=== PATIENT | male | born 1970 | race Caucasian/White ===

== ENCOUNTER 2019-11-30 10:54 | Outpatient (CLI) | payer OTHER, SELFPAY ==
[2019-11-30 11:52] LABS: Potassium 5.2 mmol/L (3.5-5.1)
== END 2019-11-30 10:55 | disposition home or self-care (01) ==
DX: R07.89 Other chest pain (principal); E87.5 Hyperkalemia
CPT/HCPCS: 36415; 80053; 84132

== ENCOUNTER 2019-12-08 10:06 | Outpatient (CLI) | payer OTHER, SELFPAY ==
[2019-12-08 11:09] LABS: Potassium 4.8 mmol/L (3.5-5.1)
== END 2019-12-08 10:07 | disposition home or self-care (01) ==
LOC: CHSLAB 10:07
PROVIDERS: PCP Family Medicine; Visit Provider Family Medicine
DX: E87.5 Hyperkalemia (principal)
CPT/HCPCS: 36415; 84132

== ENCOUNTER 2020-12-13 15:25 | Outpatient (CLI) | payer OTHER, SELFPAY ==
[2020-12-13 17:09] LABS: SARS-CoV-2 RNA PCR Negative (Negative)
== END 2020-12-13 15:26 | disposition home or self-care (01) ==
PROVIDERS: PCP Emergency Medicine; Visit Provider Family Medicine
DX: J06.9 Acute upper respiratory infection, unspecified (principal); Z20.822 Contact with and (suspected) exposure to COVID-19
CPT/HCPCS: C9803; U0003; U0005

== ENCOUNTER 2021-08-17 02:31 | Emergency (ER) | payer OTHER, SELFPAY ==
--- NOTE | ~2021-08-17 | XR_ITS ---
EXAMINATION: XR chest 1V portable DATE: 08/17/2021 02:50 INDICATION: Shortness of breath. TECHNIQUE: A single frontal view of the chest was obtained. COMPARISON: Chest 2 views 08/09/2019 FINDINGS: The lungs are hyperexpanded, consistent with emphysema. No pleural effusion or pneumothorax . The heart size is normal. IMPRESSION: 1. Emphysema. Reviewed, dictated and finalized at location A. ENGINEER IMPRESSION: 1. Emphysema.
[2021-08-17 02:31] VITALS: PULSE 90; RESP 24; O2SAT 93
[2021-08-17] MEDS: IPRATROPIUM 0.5 MG/ALBUTEROL SULFATE 2.5 MG AMPUL.NEB 3 ML INHALATION (02:31)
--- NOTE | 2021-08-17 02:35 | ED.SOB ---
HPI - SOB/Dyspnea General Chief Complaint: Upper Respiratory Infection Stated Complaint: SHORTNESS OF BREATH Time Seen by Provider: 08/17/21 02:35 Source: patient History of Present Illness HPI Narrative: 51-year-old male ex-smoker history of COPD presents to the ER with a 3 day history of -- intermittent fevers -- cough productive of mucopurulent sputum -- worsening shortness breath. 45 minutes ago his bridging became worse which prompted to come to the ER -- pleuritic chest pain MD elicited complaint: shortness of breath, cough and pain with inspiration Pertinent past history: COPD Onset (ago): day(s) ( 3 days) Context: recent illness Relieving factors: nothing Known history of: COPD Associated symptoms: pain with inspiration, fever, cough, wheezing and sputum production Treatment prior to arrival: none Related Data Home Medications Medication Instructions Recorded Confirmed albuterol sulfate [Ventolin HFA] 2 puff INHALATION PRN 08/09/19 08/17/21 budesonide-formoterol HFA 80 2 puff INHALATION Q12H 08/15/19 08/17/21 mcg-4.5 mcg/actuation aerosol inhaler Allergies Allergy/AdvReac Type Severity Reaction Status Date / Time No Known Allergies Allergy Verified 08/17/19 15:34 Review of Systems Review of Systems: All systems reviewed & are unremarkable except as noted in HPI and below Constitutional: Constitutional: Reports as per HPI and Reports no additional constitutional complaints Eyes: Eyes: Reports as per HPI and Reports no additional eye complaints ENT: Reports system reviewed and no additional complaints, except as documented and Reports as per HPI Cardiovascular: Cardiovascular: Reports as per HPI, Reports no additional cardiovascular complaints and Reports dyspnea Respiratory: Respiratory: Reports as per HPI, Reports no additional respiratory complaints, Reports cough, Reports pain on inspiration, Reports pain with cough and Reports dyspnea Gastrointestinal: Gastrointestinal: Reports as per HPI and Reports no additional gastrointestinal complaints Genitourinary: Genitourinary: Reports no additional male genitourinary complaints and Reports as per HPI Musculoskeletal: Musculoskeletal: Reports no additional musculoskeletal complaints and Reports as per HPI Integumentary/Breasts: Skin/Breast: Reports system reviewed and no additional complaints, except as docu and Reports as per HPI Neurologic: Reports system reviewed and no additional complaints, except as documented and Reports as per HPI Psychiatric: Psychiatric: Reports no additional psychiatric complaints Endocrine: Endocrine: Reports no additional endocrine complaints Hematologic/Lymphatic: Hematologic/Lymphatic: Reports no additional hematologic/lymphatic complaints Allergic/Immunologic: Allergic/Immunologic: Reports no additional allergic/immunologic complaints [facility] Past Medical History Medical History COPD (chronic obstructive pulmonary disease) Surgical History Surgical History H/O hernia repair H/O shoulder surgery History of ankle surgery History of tonsillectomy Social History Social History Smoking packs per day: 1 Smoking cigarettes per day: 20.0 Years smoked: 30 Smoking pack-years: 30.00 Smoking status: Current every day smoker Tobacco type: e-cigarettes/vaping Second hand tobacco smoke exposure: Yes ( smokes) Smoking end date: 10/28/18 Additional smoking assessment comments: Currently vapes Alcohol intake: former Substance use: never Substance use type: does not use Gender identity (if verbalized by the patient): Male Exam Const: General: cooperative, acute distress and anxious HENMT: Head: normal to inspection and No palpable skull fracture present Ears: hearing grossly normal bilaterally and external ears normal Ge
--- NOTE | 2021-08-17 02:44 | ECG_ITS ---
Measurements Intervals [place] Rate: 81 P: 72 [place]: 141 QRS: 77 QRSD: 98 T: 64 QT: 395 QTc: 459 Interpretive Statements SINUS RHYTHM POSSIBLE LEFT ATRIAL ENLARGEMENT DELAYED PRECORDIAL R/S TRANSITION BASELINE ARTIFACT- I, III, AVR, AVL, V1, V4 BORDERLINE ECG Electronically Signed On 08-17-2021 8:13:59 RESEARCH RN SPEC by Ramesh Medeiros D.O.
[2021-08-17 02:48] VITALS: PULSE 88; RESP 19; O2SAT 92
[2021-08-17] MEDS: methylPREDNISolone SOD SUCC 125 MG VIAL IM (02:54)
[2021-08-17 03:11] LABS: Basophils Absolute Auto 0.01 K/mm3 (0.00-0.10); Basophils Percent Auto 0.1 % (0.0-1.0); Hemoglobin 13.2 g/dL (14.0-18.0); Immature Granulocyte Absolute 0.08 K/mm3 (0.00-0.00); Immature Granulocyte Percent A 0.5 % (0.0-0.0); Lymphocytes Absolute Auto 0.82 K/mm3 (1.10-4.50); Lymphocytes Percent Auto 5.6 % (18.0-42.0); Mean Corpuscular Hemoglobin 31.1 pg (27.0-31.0); Mean Corpuscular Volume 94.3 fL (78.0-102.0); Mean Platelet Volume 9.3 fl (8.7-11.0); Monocytes Absolute Auto 0.57 K/mm3 (0.10-0.90); Monocytes Percent Auto 3.9 % (2.0-11.0); Neutrophils Absolute Auto 13.2 K/mm3 (1.7-7.2); Neutrophils Percent Auto 89.9 % (50.0-70.0); Platelet Count Result 351 K/mm3 (150-420); Red Blood Count 4.24 M/mm3 (4.70-6.10); White Blood Count 14.7 K/mm3 (4.8-10.8)
[2021-08-17 03:24] LABS: Lactic Acid Reflex 3.5 mmol/L (0.4-2.0)
[2021-08-17 03:25] LABS: Alanine Aminotransferase 29 U/L (16-63); Albumin Level 3.9 g/dL (3.4-5.0); Alkaline Phosphatase 74 U/L (46-116); Anion Gap 14 mmol/L (8-16); Aspartate Amino Transferase 26 U/L (15-37); Bilirubin,Total 0.8 mg/dL (0.00-1.00); Blood Urea Nitrogen 18 mg/dL (7-18); Carbon Dioxide 24 mmol/L (21-32); Chloride 98 mmol/L (98-108); Estimated Glomerular Filt Rate > 60; Glucose 167 mg/dL (70-99); NT Pro B Type Natriuretic Pept 266 pg/mL (0-125); Osmolality Calculated 287 mOsm/kg (285-295); Sodium 136 mmol/L (136-145); Total Protein 7.5 g/dL (6.4-8.2)
[2021-08-17 03:28] LABS: Influenza Control Valid (Valid)
[2021-08-17 03:29] LABS: Troponin I 5.3 ng/L (0.00-60.4)
[2021-08-17 03:31] VITALS: BP 140/82; PULSE 103; RESP 24; TEMP 36.4; O2SAT 97
[2021-08-17 03:32] LABS: SARS-CoV-2 Ag Negative (Negative)
[2021-08-17 03:45] VITALS: PULSE 88; RESP 19; O2SAT 89
[2021-08-17] MEDS: AZITHROMYCIN 250 MG TABLET 500 MG PO (03:45)
[2021-08-17] MEDS: cefTRIAXone 1 GM in DEXTROSE 5% IN WATER 50 ML IVPB (03:46)
[2021-08-17] MEDS: SODIUM CHLORIDE 0.9% 3 ML NEB FOR INHALATION (03:57)
[2021-08-17] MEDS: ALBUTEROL SULFATE NEB 2.5 MG/3 ML INH (03:57)
--- NOTE | 2021-08-17 04:11 | PC.NURSE ---
triage & assessment at 0231, error in documentation time
[2021-08-17 04:13] VITALS: PULSE 82; RESP 18; O2SAT 93
[2021-08-17 04:26] VITALS: BP 106/70; PULSE 82; RESP 22; TEMP 36.6; O2SAT 85
--- NOTE | 2021-08-17 04:41 | PC.NURSE ---
explaining benefit to hospital admission
--- NOTE | 2021-08-17 04:46 | PC.NURSE ---
SPO2 85 ON ROOM AIR, PATIENT CONT TO REFUSE ADMISSION
--- NOTE | 2021-08-17 04:54 | PC.NURSE ---
IV REMOVED WITH DRESSING BEFORE LEAVING AMA
[2021-08-17 06:03] LABS: Reflex Lactic Acid Yes or No Add Lactic
== END 2021-08-17 04:55 | disposition left against medical advice (07) ==
PROVIDERS: Emergency Provider Internal Medicine Critical Care Medicine
DX: J44.1 Chronic obstructive pulmonary disease with (acute) exacerbation (principal); J18.9 Pneumonia, unspecified organism; J96.01 Acute respiratory failure with hypoxia; Z20.822 Contact with and (suspected) exposure to COVID-19
CPT/HCPCS: 36415; 71045; 80053; 83605; 83880; 84484; 85025; 87426; 87804; 93005; 96365; 96372; 99283; 99284; A9270; C9803; J0696; J2930

== ENCOUNTER 2021-09-23 12:21 | Outpatient (CLI) | payer OTHER, SELFPAY ==
--- NOTE | ~2021-09-23 | XR_ITS ---
XR tibia fibula RT 2V DATE: 09/23/2021 12:48 INDICATION: Right leg pain distal to knee. TECHNIQUE: AP and lateral views COMPARISON: None FINDINGS: There is a plate and multiple screws of the distal fibular shaft and lateral malleolus. There are 2 lag screws through the medial malleolus, extending into the distal tibial metaphysis. No recent fracture or dislocation of the tibia or fibula including ankle, or disruption of the ankle mortise is detected. IMPRESSION: Status post ORIF medial and lateral malleoli No recent fracture or dislocation Reviewed, dictated and finalized at location A. WORKER
--- NOTE | ~2021-09-23 | XR_ITS ---
XR knee RT 3V 09/23/2021 12:48 INDICATION: Right knee pain PROCEDURE: 3 views right knee COMPARISON: No prior studies for comparison. FINDINGS: Fracture, dislocation or subluxation is not identified. There is heterotopic ossification a djacent to the distal femur medially. No foreign bodies are identified. IMPRESSION: 1: NO ACUTE BONE OR JOINT ABNORMALITY IDENTIFIED. Reviewed, dictated and finalized at location B. ORATE ACCOUNT EXECUTIVE
== END 2021-09-23 12:22 | disposition home or self-care (01) ==
LOC: CHSIMG 12:23
PROVIDERS: PCP Family Medicine; Visit Provider Family Medicine
DX: M79.604 Pain in right leg (principal)
CPT/HCPCS: 73562; 73590

== ENCOUNTER 2023-04-04 14:08 | Emergency (ER) | payer OTHER, SELFPAY ==
--- NOTE | ~2023-04-04 | XR_ITS ---
PA, oblique, and lateral views of the left index finger Clinical history: Injury FINDINGS: No fracture or dislocation seen. Osseous alignment is anatomic. Joint spaces are preserved. Soft tissues are unremarkable. IMPRESSION: Unremarkable exam. Reviewed, dictated and finalized at location M. IMPRESSION: Unremarkable exam.
[2023-04-04 14:08] VITALS: BP 134/89; PULSE 66; RESP 17; TEMP 36.6; O2SAT 99
--- NOTE | 2023-04-04 14:12 | ED.WOUNDLAC ---
HPI - Wound/Laceration General Chief Complaint: Wound/Laceration Stated Complaint: finger laceration Time Seen by Provider: 04/04/23 14:12 Source: patient Mode of arrival: ambulatory Limitations: no limitations History of Present Illness HPI narrative: patient is a 53-year-old male with a left pointer finger flexor surface laceration after getting it closed in a door jam. Onset (ago): hour(s) (8) Location: other ( Pointer finger left) Place: home Patient tetanus UTD: Yes Context: accidental Associated symptoms: none Related Data Home Medications Medication Instructions Recorded Confirmed ipratropium bromide 17 1 puff inhalation DAILY 04/04/23 04/04/23 mcg/actuation HFA aerosol inhaler (Atrovent HFA) sildenafil 100 mg tablet 100 mg PO DAILY PRN Erectile 04/04/23 04/04/23 Dysfunction zafirlukast 20 mg tablet 20 mg PO BID 04/04/23 04/04/23 Allergies Allergy/AdvReac Type Severity Reaction Status Date / Time No Known Allergies Allergy Verified 04/04/23 14:13 Review of Systems Review of Systems: All systems reviewed & are unremarkable except as noted in HPI and below Constitutional: Constitutional: Reports no additional constitutional complaints Eyes: Eyes: Reports no additional eye complaints ENT: Reports system reviewed and no additional complaints, except as documented Cardiovascular: Cardiovascular: Reports no additional cardiovascular complaints Respiratory: Respiratory: Reports no additional respiratory complaints Gastrointestinal: Gastrointestinal: Reports no additional gastrointestinal complaints Genitourinary: Genitourinary: Reports no additional male genitourinary complaints Musculoskeletal: Musculoskeletal: Reports no additional musculoskeletal complaints Integumentary/Breasts: Skin/Breast: Reports system reviewed and no additional complaints, except as docu Neurologic: Reports system reviewed and no additional complaints, except as documented Psychiatric: Psychiatric: Reports no additional psychiatric complaints Endocrine: Endocrine: Reports no additional endocrine complaints Hematologic/Lymphatic: Hematologic/Lymphatic: Reports no additional hematologic/lymphatic complaints Allergic/Immunologic: Allergic/Immunologic: Reports no additional allergic/immunologic complaints [facility] Past Medical History Medical History COPD (chronic obstructive pulmonary disease) Surgical History Surgical History H/O hernia repair H/O shoulder surgery History of ankle surgery History of tonsillectomy Social History Social History Smoking packs per day: 1 Smoking cigarettes per day: 20.0 Years smoked: 30 Smoking pack-years: 30.00 Smoking status: Former smoker Tobacco type: e-cigarettes/vaping Second hand tobacco smoke exposure: Yes ( smokes) Smoking end date: 10/28/18 Additional smoking assessment comments: Currently vapes Alcohol intake: former Substance use: never Substance use type: does not use Living arrangements: with family Gender identity (if verbalized by the patient): Male Exam Const: General: healthy appearing Nutritional Appearance: well nourished Orientation/consciousness: patient oriented x3 HENMT: Head: normal to inspection Ears: external ears normal Eyes: Conjunctivae: conjunctivae normal Pupils: Equal, round and reactive pupils present Neck: Neck: normal visual inspection Chest: Chest palpation & inspection: normal inspection of the chest Resp: Effort & Inspection: normal respiratory effort Auscultation: clear to auscultation bilaterally Cardio: Rate: regular rate Rhythm: regular rhythm GI: GI Palp: Yes Soft to palpation and No Tenderness to palpation present (GI) Skin: General skin exam: normal color Rashes: no rashes Other: Left pointer finger flexor
[2023-04-04 15:54] VITALS: BP 130/80; PULSE 68; RESP 17; TEMP 36.7; O2SAT 99
== END 2023-04-04 15:56 | disposition home or self-care (01) ==
PROVIDERS: Emergency Provider Emergency Medicine; PCP Family Medicine
DX: S61.211A Laceration without foreign body of left index finger without damage to nail, initial encounter (principal); J44.9 Chronic obstructive pulmonary disease, unspecified; Z87.891 Personal history of nicotine dependence; W45.8XXA Other foreign body or object entering through skin, initial encounter; Y92.009 Unspecified place in unspecified non-institutional (private) residence as the place of occurrence of the external cause
CPT/HCPCS: 29130; 73140; 99283

== ENCOUNTER 2024-10-14 05:12 | Emergency (ER) | payer OTHER, SELFPAY ==
[2024-10-14] VITALS (8 sets, daily range): BP systolic 127–144; BP diastolic 75–89; PULSE 62–66; RESP 17–24; TEMP 37.3–38.1; O2SAT 90–96
--- NOTE | ~2024-10-14 | XR_ITS ---
EXAMINATION: XR chest 2V DATE: 10/14/2024 05:54 INDICATION: 2 days of cough TECHNIQUE: PA and lateral views of the chest were obtained. COMPARISON: Chest radiograph dated 08/17/2021 FINDINGS: Hyperexpansion of lungs consistent with emphysema. Blunting at the left costophrenic represent a very small left pleural effusion or pleural parenchymal scarring. No other airspace opacities,, pulmonary edema or pneumothorax. The cardiomediastinal silhouette is normal. Visualized bones and soft tissues are unremarkable. IMPRESSION: 1. Emphysema with possible tiny left pleural effusion. Reviewed, dictated and finalized at location A. LATHE MACHINIST
--- OUTSIDE RECORDS SUMMARY | 2024-10-14 05:13 | XMS_ITS | Clinical Summary ---
Author Organization [facility] Address [address] [place] [address] Care Team Providers Care Blasting Coal Miner Name Role Phone Deny Cain MD Primary Care Provider [phone] Allergies No known active allergies Medications VENTOLIN HFA 108 (90 Base) MCG/ACT inhaler 1 Active SYMBICORT 160-4.5 MCG/ACT inhaler 1 Active ATROVENT HFA 17 MCG/ACT inhaler 1 Active predniSONE 10 mg tablet 10 mg. As needed 1 Active CPAP DEVICE, DME,Indications: Obstructive sleep apnea (adult) (pediatric) CPAP pressure 4. Obstructive sleep apnea. G 47.33. Please provide patient with mask, harness, tubing, humidity and all supplies for CPAP machine. 1 Device 1 Active zafirlukast 20 MG TabIndications:M ild intermittent asthma without complication (HHS/HCC) Take 1 tablet (20 mg total) by mouth 2 (two) times daily. on an empty stomach. 60 tablet 11 2 Active Active Problems Problem Noted Date Diagnosed Date Obstructive sleep apnea (adult) (pediatric) 12/30 Moderate persistent asthma without complication (HHS/HCC) 10/26/2020 Resolved Problems Problem Noted Date Diagnosed Date Resolved Date Snoring 10/26/2020 01/26/2021 Immunizations Name Administration Dates Next Due Influenza (Generic) 05/29/2019,06/07/2018,2016 Shingrix 11/06/2019,05/29/2019 Family History Medical History Relation Comments Asthma Mother Heart Disease Mother Relation Status Comments Mother Social History Tobacco Use Types Packs/Day Years Used Date Smoking Tobacco: Former Cigarettes Q uit: 09/06/2018 Smokeless Tobacco: Never Tobacco Cessation:Counseling Given: No Alcohol Use Standard Drinks/Week Comments Never 0 (1 standard drink = 0.6 oz pur e alcohol) AUDIT-C Answer Date Recorded Q1: How often do you have a drink containing alc ohol? Never 10/23/2020 Average Number of Drinks Not on file 021 Frequency of Binge Drinking Not on file 10/01 PHQ-2 Answer Date Recorded PHQ-2 Score - If the patient scores above 3, please move on to questions 3-9 0 10/23/2020 Sex and Gender Information Value Date Recorded Sex Assigned at Not on file Legal Sex Male 8:27 PM CDT Gender Identity Not on file Sexual Orientation Not on file Last Filed Vital Signs Vital Sign Reading Time Taken Comments Blood Pressure 116/88 04/23/2021 9:52 AM CDT Pulse 84 04/23/2021 9:52 AM CDT Temperature - - Respiratory Rate 20 01/22/2021 3:23 PM CDT Oxygen Saturation 98% 04/23/2021 9:52 AM CDT Inhaled Oxygen Concentration - - Weight 81.7 kg (180 lb 3.2 oz) 04/23/2021 9:52 A M CDT Height 182.9 cm (6') 04/23/2021 9:52 AM CDT Body Mass Index 24.44 04/23/2021 9:52 AM CDT Plan of Treatment Health Maintenance Due Date Last Done Comments Colorectal Cancer Screening Colonoscopy (10 Years) 1969 Annual Physical 01/22/1972 Pneumococcal Vaccine: Pediatrics (0 to 5 Years) and At-Risk Patients (6 to 64 Years) (1 of 2 - PCV) 1975 Hepatitis C 1987 DTaP, Tdap and Td Vaccines ( 1 - Tdap) 01/22/1988 Hepatitis B Vaccines (1 of 3 - 19+ 3-dose series) 01/22/1988 COVID-19 Vaccine ( - 2023-2 5 season) 2024 Influenza Adult (#1) 2024 05/29/2019, 06/07/2018, 07/15/2017 Zoster Vaccines Completed 11/06/2019, 05/29/2019 Meningococcal B Vaccine Aged Out No l onger eligible based on patient's age to complete this topic Meningococcal Vaccine Aged Out No nisa enzo eligible based on patient's age to complete this topic RSV Immunizations Under 20 Months Aged Out No longer eligible b ased on patient's age to complete this topic Insurance [facility] Care Teams Blasting Coal Miner Relationship Specialty Start Date End Date Deny Cain MD PCP - General FAMILY PRACTICE 01/16/20
--- NOTE | 2024-10-14 05:50 | ED_ITS ---
HPI - URI/Sore Throat General Chief Complaint: Upper Respiratory Infection Stated Complaint: upper respiratory Time Seen by Provider: 10/14/24 05:18 Source: patient Mode of arrival: ambulatory Limitations: no limitations History of Present Illness HPI Narrative: patient came to the ED with his complaining of coughing started 3 days ago, was seen by his family physician at that time and started on Z-Gino, pre dnisone, test alone and Singulair. patient is telling me that he been coughing vigorously lately and unable to sleep associated with fever and chills. Related Data Home Medications ?Medication ?Instructions ?Recorded ?Confirmed ?Last Taken ?Type ipratropium bromide 17 1 puff inhalation DAILY 04/04/23 10/14/24 10/14/24 History mcg/actuation HFA aerosol inhaler (Atrovent HFA) sildenafil 100 mg tablet 100 mg PO DAILY PRN Erectile 04/04/23 04/04/23 Unknown History Dysfunction zafirlukast 20 mg tablet 20 mg PO BID 04/04/23 04/04/23 Unknown History azithromycin 250 mg tablet 250 mg PO DAILY 10/14/24 10/14/24 Unknown History buprenorphine 2 mg-naloxone 0.5 mg 1 film sublingual PRN 10/14/24 10/14/24 Unk nown History sublingual film celecoxib 200 mg capsule 200 mg PO DAILY 10/14/24 10/14/24 Unknown History prednisone 10 mg tablet 10 mg PO DAILY 10/14/24 10/14/24 Unknown History Allergies Allergy/AdvReac Type Severity Reaction Status Date / Time No Known Allergies Allergy Verified 10/14/24 05:20 Review of Systems Review of Systems: All systems reviewed & are unremarkable except as noted in HPI and below PMFSH Past Medical History Medical History COPD (chronic obstructive pulmonary disease) Surgical History Surgical History H/O shoulder surgery History of tonsillectomy H/O hernia repair History of ankle surgery Social History Social History Smoking packs per day: 1 Smoking cigarettes per day: 20.0 Years smoked: 30 Smoking pack-years: 30.00 Smoking status: Former smoker Tobacco type: e-cigarettes/vaping Second hand tobacco smoke exposure: Yes ( smokes) Smoking end date: 10/28/18 Additional smoking assessment comments: Currently vapes Alcohol intake: former Substance use: never Substance use type: does not use Living arrangements: with family Gender identity (if verbalized by the patient): Male Exam Narrative: General appearance: Well-developed, well-nourished Skin: Normal color Head: Normocephalic, nontraumatic Eyes: Clear conjunctiva ENT: Oropharynx normal, ears normal, nose normal Neck: Supple, nontender Chest and respiratory: Diminution of air entry bilaterally, scattered wheezing and rhonchi bilaterally Heart: Regular rate/rhythm Abdomen: Soft, nontender, no organomegaly, quiet bowel sounds Vascular: Normal peripheral pulses, normal capillary refill. Musculoskeletal: Normal range of motion, nontender back Neurologic: Alert and oriented ?3, PROPAGATION WORKER is normal as tested, no gross motor deficit Course Vital Signs Vital signs: Vital Signs Temperature 38.1 C H 10/14/24 05:16 Pulse Rate 64 10/14/24 05:16 Respiratory Rate 17 10/14/24 05:16 Blood Pressure 144/89 H 10/14/24 05:16 Pulse Oximetry 93 10/14/24 05:16 Oxygen Delivery Room Air 10/14/24 05:16 Temperature 38.1 C H 10/14/24 05:16 Pulse Rate 64 10/14/24 05:16 Respiratory Rate 17 10/14/24 05:16 Blood Pressure 144/89 H 10/14/24 05:16 Pulse Oximetry 93 10/14/24 05:16 Oxygen Delivery Room Air 10/14/24 05:16 MDM - URI/Sore Throat MDM Narrative Medical decision making narrative: patient presents with trouble breathing and coughing Vital signs showing temperature of 38.1?, oxygen saturation at room air 93% Physical examination showing a patient with frequent coughing, wheezing and rhonchi Differential diagnosis included COPD exacerbation, pneumonia, viral infection, Blood workup includes CBC, CMP showed sodium of 133, C-reactive protein 1.1, BnP for 402 Blood gas on room air showed saturation 89.4 % Chest x-ray showed emphysematous changes Diagnosis COPD exacerbation secondary to influenza Patient declined hospitalization , is telling me that his oxygenation normally runs low and signed AMA I declare that I have personally explained to the patient the risks and consequences involved in leaving this facility at this time. the benefits of continued treatment and/or hospitalization. And the alternatives. If any. to continued treatment and/or hospitalization. if applicable.I have not identified any psychosis, drugs, mental illness, or medical illness that alters decision- making capacity (reasoning abilities ). Differential Diagnosis Differential diagnosis: Likely upper respiratory infection, viral infection, bronchitis and influenza Medical Records Attestation: I reviewed the patient's medical records. Lab Data Attestation: I reviewed the patient's lab results. Labs: Lab Results 10/14/24 Range/Units 05:13 Influenza A (RT-PCR) Pending Influenza B (RT-PCR) Pending RSV (RT-PCR) Pending SARS-CoV-2 RNA (RT-PCR) Pending Imaging Data Radiologist's impression: Impressions Chest X-Ray 10/14/24 06:36 IMPRESSION: 1. Emphysema with possible tiny left pleural effusion. ECG Data EKG #1: Attestation: I personally reviewed and interpreted this ECG as follows: ECG completion date: 10/14/24 Interpretation: normal sinus rhythm at 66 beats per minute, normal EKG Critical Care Time Critical Care Time Critical Care Time: No Discharge Plan Discharge Clinical Impression: Influenza COPD (chronic obstructive pulmonary disease) Qualifiers: COPD type: COPD with acute exacerbation Qualified Code(s): J44.1 - Chronic obstructive pulmonary disease with (acute) exacerbation Patient Disposition: Left Against Medical Advice Condition: Critical Patient Language: Maltese Prescriptions: No Action celecoxib 200 mg capsule 200 mg PO DAILY prednisone 10 mg tablet 10 mg PO DAILY azithromycin 250 mg tablet 250 mg PO DAILY buprenorphine-naloxone 2-0.5 mg film 1 film sublingual PRN sildenafil 100 mg tablet 100 mg PO DAILY PRN (Reason: Erectile Dysfunction) zafirlukast 20 mg tablet 20 mg PO BID Atrovent HFA 17 mcg/actuation HFA aerosol inhaler 1 puff INHALATION DAILY Follow-up/Referrals: Payton,Deny Reyes MD [Primary Care Provider] -
--- NOTE | 2024-10-14 05:58 | ECG_ITS ---
Test Date: 2024-10-14 06:41:26 Measurements Intervals [place] Rate: 66 P: 68 [place]: 138 QRS: 87 QRSD: 97 T: 39 QT: 374 QTc: 393 Interpretive Statements SINUS RHYTHM BORDERLINE R WAVE PROGRESSION, ANTERIOR LEADS BASELINE ARTIFACT- I, II, III, AVR, AVL, AVF, V2 BORDERLINE ECG No previous ECG available for comparison Electronically Signed On 10-14-2024 07:43:37 OUTBOUND CALL CENTER REPRESENTATIVE by Ramesh Medeiros D.O.
[2024-10-14 06:01] LABS: Influenza A QL RT-PCR Positive (Negative); Influenza B QL RT-PCR Negative (Negative); RSV RNA, RT-PCR Negative (Negative); SARS-CoV-2 RNA PCR Negative (Negative)
[2024-10-14] MEDS: IBUPROFEN 600 MG TABLET PO (06:13)
[2024-10-14] MEDS: ACETAMINOPHEN 325 MG TABLET 650 MG PO (06:13)
[2024-10-14] MEDS: IPRATROPIUM 0.5 MG/ALBUTEROL SULFATE 2.5 MG AMPUL.NEB 3 ML INHALATION (06:14)
[2024-10-14 06:15] LABS: Base Excess ABG -0.2 mmol/L (0-2); HCO3 ABG 22.3 mmol/L (23-29); Oxygen Saturation ABG 89.4 % (95-97); Oxyhemoglobin 88.7 % (94-100); PCO2 ABG 30.3 mmHg (35-45); PO2 ABG 55.7 mmHg (80-90); pH ABG 7.48 (7.35-7.45)
[2024-10-14 06:17] LABS: Device ROOM AIR; Modified Allen's Test Pass; Site Drawn LEFT RADIAL
[2024-10-14 06:20] LABS: Basophils Absolute Auto 0.01 K/mm3 (0.00-0.10); Basophils Percent Auto 0.2 % (0.0-1.0); Eosinophils Absolute Auto 0.02 K/mm3 (0.02-0.50); Eosinophils Percent Auto 0.3 % (1.0-6.0); Hematocrit 36.9 % (40.0-54.0); Hemoglobin 12.4 g/dL (14.0-18.0); Immature Granulocyte Absolute 0.02 K/mm3 (0.00-0.00); Immature Granulocyte Percent A 0.3 % (0.0-0.0); Lymphocytes Absolute Auto 0.63 K/mm3 (1.10-4.50); Lymphocytes Percent Auto 10.3 % (18.0-42.0); Mean Corpuscular HGB Conc 33.6 g/dL (32-36); Mean Corpuscular Hemoglobin 31.7 pg (27.0-31.0); Mean Corpuscular Volume 94.4 fL (78.0-102.0); Mean Platelet Volume 9.8 fl (8.7-11.0); Monocytes Absolute Auto 0.38 K/mm3 (0.10-0.90); Monocytes Percent Auto 6.2 % (2.0-11.0); Neutrophils Absolute Auto 5.06 K/mm3 (1.70-7.20); Neutrophils Percent Auto 82.7 % (50.0-70.0); Platelet Count Result 192 K/mm3 (150-420); Red Blood Count 3.91 M/mm3 (4.70-6.10); Red Cell Distribution Width 12.9 % (11.6-14.4); White Blood Count 6.1 K/mm3 (4.8-10.8)
[2024-10-14 06:35] LABS: INR 0.9; Prothrombin Time 10.5 Seconds (9.50-12.1)
[2024-10-14 06:35] LABS: CRP 1.1 mg/dL (0.0-0.9)
[2024-10-14 06:39] LABS: Lactic Acid Reflex 1.6 mmol/L (0.4-2.0)
[2024-10-14 06:42] LABS: Alanine Aminotransferase 70 U/L (16-63); Albumin Level 3.3 g/dL (3.4-5.0); Alkaline Phosphatase 110 U/L (46-116); Anion Gap 8 mmol/L (4-12); Aspartate Amino Transferase 79 U/L (15-37); Bilirubin,Total 0.3 mg/dL (0.00-1.00); Blood Urea Nitrogen 17 mg/dL (7-18); Carbon Dioxide 27 mmol/L (21-32); Chloride 98 mmol/L (98-108); Estimated CRCL calculation 109 ml/min; Estimated Glomerular Filt Rate > 60; Glucose 105 mg/dL (70-99); NT Pro B Type Natriuretic Pept 402 pg/mL (0-125); Osmolality Calculated 277 mOsm/kg (285-295); Potassium 4.1 mmol/L (3.5-5.1); Sodium 133 mmol/L (136-145); Total Protein 6.3 g/dL (6.4-8.2)
--- NOTE | 2024-10-15 12:17 | PC.NURSE ---
Preliminary blood culture report; no growth to date.
== END 2024-10-14 07:12 | disposition left against medical advice (07) ==
PROVIDERS: Emergency Provider Emergency Medicine; PCP Family Medicine
DX: J11.1 Influenza due to unidentified influenza virus with other respiratory manifestations (principal); J44.1 Chronic obstructive pulmonary disease with (acute) exacerbation; Z79.899 Other long term (current) drug therapy; Z87.891 Personal history of nicotine dependence; Z20.822 Contact with and (suspected) exposure to COVID-19
CPT/HCPCS: 36415; 36600; 71046; 80053; 82805; 83605; 83880; 85025; 85610; 85730; 86140; 87040; 87637; 93005; 96374; 96375; 99284; A9270

== ENCOUNTER 2024-10-15 18:51 | Inpatient (IN) | payer OTHER, SELFPAY ==
[2024-10-15] VITALS (19 sets, daily range): BP systolic 119–132; BP diastolic 66–91; PULSE 62–74; RESP 22; TEMP 36.6–36.9; O2SAT 88–92; BMI 22.0
--- NOTE | ~2024-10-15 | XR_ITS ---
EXAMINATION: XR chest 1V portable DATE: 10/15/2024 19:10 INDICATION: Cough and shortness of breath TECHNIQUE: frontal view of the chest was obtained. COMPARISON: Chest radiograph dated 10/14/2024 FINDINGS: Increased indistinct interstitial pattern with bronchial wall thickening throughout both lungs. Patch y airspace opacities in the right mid and upper and left lower lung zones. No pleural effusion or pne umothorax. The cardiomediastinal silhouette is normal. IMPRESSION: 1. Diffuse bilateral lung disease and favor pneumonia over pulmonary edema. Reviewed, dictated and finalized at location A. MANAGER
--- OUTSIDE RECORDS SUMMARY | 2024-10-15 18:54 | XMS_ITS | Clinical Summary ---
Author Organization [facility] Address [address] [place] [address] Care Team Providers Care Business Investor Name Role Phone Deny Cain MD Primary Care Provider [phone] Allergies No known active allergies Medications VENTOLIN [...] patient's age to complete this topic Insurance [facility] Care Teams Business Investor Relationship Specialty Start Date End Date Deny Cain MD PCP - General FAMILY PRACTICE 01/16/20
--- NOTE | 2024-10-15 18:59 | ED_ITS ---
HPI - SOB/Dyspnea General Chief Complaint: Shortness of Breath/Dyspnea Stated Complaint: sob Time Seen by Provider: 10/15/24 18:55 History of Present Illness HPI Narrative: 54 years old white male came to the emergency room by private car with his complaining of coughing shortness of breath for the last 4 days. Patient was seen in our emergency room yesterday, tested positive for influenza a, and was hypoxic at that time saturation on room air 89%. Patient declined and signed AMA. Currently patient denies any fever or chills. Patient was seen by his family physician 4 days ago and started on Z-Gino and prednisone and Singulair. Related Data Home Medications ?Medication ?Instructions ?Recorded ?Confirmed ?Last Taken ?Type ipratropium bromide 17 1 puff inhalation DAILY 04/04/23 10/14/24 10/14/24 History mcg/actuation HFA aerosol inhaler (Atrovent HFA) sildenafil 100 mg tablet 100 mg PO DAILY PRN Erectile 04/04/23 04/04/23 Unknown History Dysfunction zafirlukast 20 mg tablet 20 mg PO BID 04/04/23 04/04/23 Unknown History azithromycin 250 mg tablet 250 mg PO DAILY 10/14/24 10/14/24 Unknown History buprenorphine 2 mg-naloxone 0.5 mg 1 film sublingual PRN 10/14/24 10/14/24 Unknown History sublingual film celecoxib 200 mg capsule 200 mg PO DAILY 10/14/24 10/14/24 Unknown History prednisone 10 mg tablet 10 mg PO DAILY 10/14/24 10/14/24 Unknown History Allergies Allergy/AdvReac Type Severity Reaction Status Date / Time No Known Allergies Allergy Verified 10/15/24 19:01 Review of Systems 2 Review of Systems: All systems reviewed & are unremarkable except as noted in HPI and below PMFSH Past Medical History Medical History COPD (chronic obstructive pulmonary disease) Surgical History Surgical History H/O shoulder surgery History of tonsillectomy H/O hernia repair History of ankle surgery Social History Social History Smoking packs per day: 1 Smoking cigarettes per day: 20.0 Years smoked: 30 Smoking pack-years: 30.00 Smoking status: Former smoker Tobacco type: e-cigarettes/vaping Second hand tobacco smoke exposure: Yes ( smokes) Smoking end date: 10/28/18 Additional smoking assessment comments: Currently vapes Alcohol intake: former Substance use: never Substance use type: does not use Living arrangements: with family Gender identity (if verbalized by the patient): Male Exam 2 Narrative: General appearance: Well-developed, well-nourished Skin: Normal color Head: Normocephalic, nontraumatic Eyes: Clear conjunctiva ENT: Oropharynx normal, ears normal, nose normal Neck: Supple, nontender Chest and respiratory: Airway patent, Mild respiratory distress, no accessory muscle use, diminution of air entry bilaterally, coarse rhonchi and wheezing bilaterally Heart: Regular rate/rhythm Abdomen: Soft, nontender, no organomegaly, quiet bowel sounds Vascular: Normal peripheral pulses, normal capillary refill. Musculoskeletal: Normal range of motion, nontender back Neurologic: Alert and oriented ?3, MANUFA[employer]URING [employer] ENG[employer]ER is normal as tested, no gross motor deficit Course Vital Signs Vital signs: Vital Signs Temperature 36.9 C 10/15/24 18:54 Pulse Rate 74 10/15/24 18:54 Respiratory Rate 22 H 10/15/24 18:54 Blood Pressure 125/81 10/15/24 18:54 Pulse Oximetry 90 10/15/24 18:54 Oxygen Delivery Room Air 10/15/24 18:54 Temperature 36.9 C 10/15/24 18:54 Pulse Rate 74 10/15/24 18:54 Respiratory Rate 22 H 10/15/24 18:54 Blood Pressure 125/81 10/15/24 18:54 Pulse Oximetry 88 L 10/15/24 18:59 Oxygen Delivery Room Air 10/15/24 18:59 MDM - SOB/Dyspnea MDM Narrative Medical decision making narrative: patient came to the ED with shortness of breath, tested positive for influenza a yesterday, been treated for COPD exacerbation with Z-Gino, prednisone and singular. Vital signs showing respiratory rate 22, saturation on room air 90% Physical examination showing diminution of air entry bilaterally and scattered rhonchi and coarse wheezing bilaterally. Blood workup today includes CBC, CMP showed Respiratory panel showed Chest x-ray showed Blood gas on room air showed Differential Diagnosis Differential diagnosis: Likely acute exacerbation of chronic obstructive airways disease, community acquired pneumonia and asthma with exacerbation Medical Records Attestation: I reviewed the patient's medical records. Lab Data Attestation: I reviewed the patient's lab results. 10/15/24 19:47 10/15/24 19:47 Labs: Lab Results 10/15/24 10/15/24 Range/Units 19:02 19:47 WBC 11.0 H (4.8-10.8) K/mm3 RBC 4.19 L (4.70-6.10) M/mm3 Hgb 13.4 L (14.0-18.0) g/dL Hct 39.5 L (40.0-54.0) % MCV 94.3 (78.0-102.0) fL MCH 32.0 H (27.0-31.0) pg MCHC 33.9 (32-36) g/dL RDW 12.5 (11.6-14.4) % Plt Count 226 (150-420) K/mm3 MPV 9.9 (8.7-11.0) fl Immature Gran % (Auto) 0.3 H (0.0-0.0) % Neut % (Auto) 82.0 H (50.0-70.0) % Lymph % (Auto) 10.7 L (18.0-42.0) % [place] % (Auto) 5.5 (2.0-11.0) % Eos % (Auto) 1.4 (1.0-6.0) % Baso % (Auto) 0.1 (0.0-1.0) % Lymph # (Auto) 1.17 (1.10-4.50) K/mm3 [place] # (Auto) 0.60 (0.10-0.90) K/mm3 Eos # (Auto) 0.15 (0.02-0.50) K/mm3 Baso # (Auto) 0.01 (0.00-0.10) K/mm3 Abs Immat Gran (auto) 0.03 H (0.00-0.00) K/mm3 Absolute Neuts (auto) 9.01 H (1.70-7.20) K/mm3 Absolute Nucleated RBC 0.00 (0.00-0.00) K/mm3 Nucleated RBC % 0.0 (0-0.0) % Sodium 134 L (136-145) mmol/L Potassium 3.8 (3.5-5.1) mmol/L Chloride 95 L (98-108) mmol/L Carbon Dioxide 31 (21-32) mmol/L Anion Gap 8 (4-12) mmol/L BUN 15 (7-18) mg/dL Creatinine 0.79 (0.70-1.30) mg/dL Estim Creat Clear Calc 97 ml/min Estimated GFR > 60 (59 - ) Glucose 116 H (70-99) mg/dL Calculated Osmolality 279 L (285-295) mOsm/kg Calcium 8.4 L (8.5-10.1) mg/dL Total Bilirubin 0.4 (0.00-1.00) mg/dL AST 46 H (15-37) U/L ALT 56 (16-63) U/L Alkaline Phosphatase 118 H (46-116) U/L Total Protein 6.7 (6.4-8.2) g/dL Albumin 3.1 L (3.4-5.0) g/dL Influenza A (RT-PCR) Positive A (Negative) Influenza B (RT-PCR) Negative (Negative) RSV (RT-PCR) Negative (Negative) SARS-CoV-2 RNA (RT-PCR) Negative (Negative) ABG Data ABG results: 10/15/24 19:47 Puncture Site Right radial ABG pH 7.49 H ABG pCO2 33.2 L ABG pO2 52.1 L ABG HCO3 24.6 ABG O2 Saturation 87.9 L ABG Base Excess 1.7 Oxyhemoglobin 87.1 L O2 Delivery Device Room air O2 Liters/Min 0.0 Critical Care Time Critical Care Time Critical Care Time: No Discharge Plan Discharge Clinical Impression: Influenza A, Acute hypoxemic respiratory failure, COPD exacerbation, Pneumonia Patient Disposition: Still a Patient Condition: Stable Patient Language: Nauruan Prescriptions: No Action celecoxib 200 mg capsule 200 mg PO DAILY prednisone 10 mg tablet 10 mg PO DAILY azithromycin 250 mg tablet 250 mg PO DAILY buprenorphine-naloxone 2-0.5 mg film 1 film sublingual PRN sildenafil 100 mg tablet 100 mg PO DAILY PRN (Reason: Erectile Dysfunction) zafirlukast 20 mg tablet 20 mg PO BID Atrovent HFA 17 mcg/actuation HFA aerosol inhaler 1 puff INHALATION DAILY Follow-up/Referrals: Payton,Deny Reyes MD [Primary Care Provider] -
[2024-10-15] MEDS: methylPREDNISolone SOD SUCC 125 MG VIAL IV PUSH (19:26)
--- OUTSIDE RECORDS SUMMARY | 2024-10-15 19:32 | XMS_ITS | Clinical Summary ---
Author Organization [facility] Address [address] [place] [address] Care Team Providers Care Phone Banker Name Role Phone Deny Cain MD Primary Care Provider [phone] Allergies No known active allergies Medications VENTOLIN [...] patient's age to complete this topic Insurance [facility] Care Teams Phone Banker Relationship Specialty Start Date End Date Deny Cain MD PCP - General FAMILY PRACTICE 01/16/20
[2024-10-15 19:50] LABS: Base Excess ABG 1.7 mmol/L (0-2); Basophils Absolute Auto 0.01 K/mm3 (0.00-0.10); Basophils Percent Auto 0.1 % (0.0-1.0); Eosinophils Absolute Auto 0.15 K/mm3 (0.02-0.50); Eosinophils Percent Auto 1.4 % (1.0-6.0); HCO3 ABG 24.6 mmol/L (23-29); Hematocrit 39.5 % (40.0-54.0); Hemoglobin 13.4 g/dL (14.0-18.0); Immature Granulocyte Absolute 0.03 K/mm3 (0.00-0.00); Immature Granulocyte Percent A 0.3 % (0.0-0.0); Lymphocytes Absolute Auto 1.17 K/mm3 (1.10-4.50); Lymphocytes Percent Auto 10.7 % (18.0-42.0); Mean Corpuscular HGB Conc 33.9 g/dL (32-36); Mean Corpuscular Volume 94.3 fL (78.0-102.0); Mean Platelet Volume 9.9 fl (8.7-11.0); Monocytes Percent Auto 5.5 % (2.0-11.0); Neutrophils Absolute Auto 9.01 K/mm3 (1.70-7.20); Oxygen Saturation ABG 87.9 % (95-97); Oxyhemoglobin 87.1 % (94-100); PCO2 ABG 33.2 mmHg (35-45); PO2 ABG 52.1 mmHg (80-90); Platelet Count Result 226 K/mm3 (150-420); Red Blood Count 4.19 M/mm3 (4.70-6.10); Red Cell Distribution Width 12.5 % (11.6-14.4); pH ABG 7.49 (7.35-7.45)
[2024-10-15 19:52] LABS: SARS-CoV-2 RNA PCR Negative (Negative)
[2024-10-15 19:54] LABS: Device ROOM AIR; Modified Allen's Test Pass; Site Drawn RIGHT RADIAL
[2024-10-15 19:54] LABS: Influenza A QL RT-PCR Positive (Negative); Influenza B QL RT-PCR Negative (Negative); RSV RNA, RT-PCR Negative (Negative)
[2024-10-15 19:59] LABS: Alanine Aminotransferase 56 U/L (16-63); Albumin Level 3.1 g/dL (3.4-5.0); Alkaline Phosphatase 118 U/L (46-116); Anion Gap 8 mmol/L (4-12); Aspartate Amino Transferase 46 U/L (15-37); Bilirubin,Total 0.4 mg/dL (0.00-1.00); Blood Urea Nitrogen 15 mg/dL (7-18); Calcium 8.4 mg/dL (8.5-10.1); Carbon Dioxide 31 mmol/L (21-32); Chloride 95 mmol/L (98-108); Estimated CRCL calculation 97 ml/min; Estimated Glomerular Filt Rate > 60; Glucose 116 mg/dL (70-99); Osmolality Calculated 279 mOsm/kg (285-295); Potassium 3.8 mmol/L (3.5-5.1); Sodium 134 mmol/L (136-145); Total Protein 6.7 g/dL (6.4-8.2)
[2024-10-15 21:12] LABS: CRP 6.5 mg/dL (0.0-0.9)
[2024-10-15 21:17] LABS: Lactic Acid Reflex 2.6 mmol/L (0.4-2.0)
[2024-10-15] MEDS: levoFLOXacin 750 MG/D5W 150 ML 750 MG/150 ML BAG 100 MG IVPB (21:22)
--- NOTE | 2024-10-15 22:03 | ADMGEN ---
This patient, Rahul Hdz, was admitted to 2nd Floor Room 204-2. Patient/family oriented to hospital policies and general routines including ID bracelet, bed and alarms, visiting hours, pain management, procedures, bathroom and other care routines, personal items, smoking policy, room service/diet, and visiting hours. Information on how to activate the Rapid Response Team has been discussed. Patient/Family are encouraged to report perceived risks to care and to ask questions if they do not understand what they are told or what they should do.
[2024-10-15] MEDS: SODIUM CHLORIDE 0.9% IV 1,000 ML 100 ML IV CONT (22:54)
[2024-10-16] VITALS (14 sets, daily range): BP systolic 124–128; BP diastolic 70–78; PULSE 59–69; RESP 18–22; TEMP 36.3; O2SAT 91–98
[2024-10-16 00:01] LABS: Reflex Lactic Acid Yes or No Add Lactic
[2024-10-16] MEDS: IPRATROPIUM 0.5 MG/ALBUTEROL SULFATE 2.5 MG AMPUL.NEB 3 ML INHALATION ×4 (00:10→16:47)
[2024-10-16] MEDS: methylPREDNISolone SOD SUCC 125 MG VIAL 60 MG IV PUSH ×2 (00:10→06:02)
[2024-10-16 06:13] LABS: Lactic Acid 2.1 mmol/L (0.4-2.0)
[2024-10-16 08:16] LABS: Hematocrit 38.6 % (40.0-54.0); Hemoglobin 12.9 g/dL (14.0-18.0); Mean Corpuscular HGB Conc 33.4 g/dL (32-36); Mean Corpuscular Hemoglobin 31.2 pg (27.0-31.0); Mean Corpuscular Volume 93.5 fL (78.0-102.0); Mean Platelet Volume 10.2 fl (8.7-11.0); Platelet Count Result 209 K/mm3 (150-420); Red Blood Count 4.13 M/mm3 (4.70-6.10); Red Cell Distribution Width 12.8 % (11.6-14.4); White Blood Count 11.3 K/mm3 (4.8-10.8)
[2024-10-16 08:25] LABS: Alanine Aminotransferase 56 U/L (16-63); Albumin Level 2.9 g/dL (3.4-5.0); Alkaline Phosphatase 111 U/L (46-116); Anion Gap 9 mmol/L (4-12); Aspartate Amino Transferase 40 U/L (15-37); Bilirubin,Total 0.4 mg/dL (0.00-1.00); Blood Urea Nitrogen 12 mg/dL (7-18); Calcium 8.2 mg/dL (8.5-10.1); Carbon Dioxide 26 mmol/L (21-32); Chloride 96 mmol/L (98-108); Estimated CRCL calculation 116 ml/min; Estimated Glomerular Filt Rate > 60; Glucose 143 mg/dL (70-99); Osmolality Calculated 273 mOsm/kg (285-295); Potassium 4.4 mmol/L (3.5-5.1); Sodium 131 mmol/L (136-145); Total Protein 6.5 g/dL (6.4-8.2)
[2024-10-16] MEDS: AZITHROMYCIN 250 MG TABLET PO (09:35)
[2024-10-16] MEDS: AMOXICILLIN/CLAVULANATE K 875-125 MG TAB 1 TABLET PO ×2 (09:36→20:26)
[2024-10-16] MEDS: guaiFENesin 12 HR 600 MG TABCR 1200 MG PO ×2 (09:36→20:27)
[2024-10-16] MEDS: CELECOXIB 100 MG CAPSULE 200 MG PO (09:36)
--- NOTE | 2024-10-16 11:13 | P.HP_ITS ---
H&P: HPI History of Present Illness Date/Time: 10/16/24 11:13 Chief Complaint: SOB Narrative: patient is a 54-year-old male who presented to the emergency department with complaints of shortness breaths. Patient reports he was diagnosed with influenza 2 days prior and his primary care physician had initially started him on azithromycin and oral prednisone. Patient had presented to the emergency department the previous day and was found to be hypoxic around 89% however patient left against medical advice ER physician attempting to admit patient for at least observation overnight and oxygen supplement. patient returned due to worsening shortness a breath and once again was found to be in acute respiratory failure with hypoxia oxygen saturations around 80-89%. patient denied any past medical history however he has been a 40+ year smoker states he has been told he has COPD but not officially diagnosed. patient was admitted to the medical unit for further evaluation and treatment of acute respiratory failure with hypoxia secondary to influenza will continue with bronchodilators, supplemental oxygen, supportive care and initiate oral antibiotics for any underlying bacterial pneumonia CXR showing diffuse bilateral lung disease and favor pneumonia over pulmonary edema. Review of Systems Review of Systems: All systems reviewed & are unremarkable except as noted in HPI and below PMFSH Past Medical History Medical History COPD (chronic obstructive pulmonary disease) Surgical History Surgical History H/O shoulder surgery History of tonsillectomy H/O hernia repair History of ankle surgery Social History Social History Smoking packs per day: 1 Smoking cigarettes per day: 20.0 Years smoked: 35 Smoking pack-years: 35.00 Smoking status: Current every day smoker Tobacco type: cigarettes Second hand tobacco smoke exposure: Yes Smoking end date: 10/28/18 Additional smoking assessment comments: Currently vapes Alcohol intake: never Substance use: never Substance use type: does not use Do You Feel Safe in your Home?: Yes Lack of Transportation: No Lack of Food: Never True Current Housing: I Have Housing Concerned About Future Housing: No Difficulty Paying Gas/Electric Bills: No Difficulty Paying for Meds: No Currently Unemployed: No Education: High School Diploma/GED Difficulty w/ Childcare or Family Care: No Living arrangements: with family Gender identity (if verbalized by the patient): Male Spiritual care concerns: No Meds Home Medications and Allergies Home Medications ?Medication ?Instructions ?Recorded ?Confirmed ?Type ipratropium bromide 17 1 puff inhalation DAILY 04/04/23 10/15/24 History mcg/actuation HFA aerosol inhaler (Atrovent HFA) sildenafil 100 mg tablet 100 mg PO DAILY PRN Erectile 04/04/23 10/15/24 History Dysfunction zafirlukast 20 mg tablet 20 mg PO BID 04/04/23 10/15/24 History azithromycin 250 mg tablet 250 mg PO DAILY 10/14/24 10/15/24 History buprenorphine 2 mg-naloxone 0.5 mg 2 film sublingual DAILY 10/14/24 10/16/24 History sublingual film celecoxib 200 mg capsule 200 mg PO DAILY 10/14/24 10/15/24 History prednisone 10 mg tablet 10 mg PO DAILY 10/14/24 10/15/24 History Allergies Allergy/AdvReac Type Severity Reaction Status Date / Time No Known Allergies Allergy Verified 10/15/24 19:01 Vital Signs Vital Signs - 24 hr 10/15/24 18:54 10/15/24 18:59 10/15/24 19:20 Temperature 98.4 F Pulse Rate 74 Respiratory Rate 22 H Blood Pressure 125/81 Pulse Oximetry 90 88 L 90 Oxygen Delivery Room Air Room Air Oxygen Flow Rate 10/15/24 19:30 10/15/24 19:31 10/15/24 19:45 Temperature Pulse Rate Respiratory Rate Blood Pressure 119/66 Pulse Oximetry 89 L 89 L 89 L Oxygen Delivery Oxygen Flow Rate 10/15/24 19:46 10/15/24 20:00 10/15/24 20:01 Temperature Pulse Rate Respiratory Rate Blood Pressure 123/85 122/81 Pulse Oximetry 89 L 89 L 89 L Oxygen Delivery Oxygen Flow Rate 10/15/24 20:15 10/15/24 20:16 10/15/24 20:31 Temperature Pulse Rate Respiratory Rate Blood Pressure 127/81 130/80 Pulse Oximetry 88 L 88 L 90 Oxygen Delivery Oxygen Flow Rate 10/15/24 20:46 10/15/24 20:47 10/15/24 20:50 Temperature Pulse Rate 62 Respiratory Rate 22 H Blood Pressure 129/91 H Pulse Oximetry 89 L 89 L 90 Oxygen Delivery Nasal Cannula Oxygen Flow Rate 2 10/15/24 21:00 10/15/24 21:15 10/15/24 21:30 Temperature Pulse Rate Respiratory Rate Blood Pressure Pulse Oximetry 92 91 92 Oxygen Delivery Oxygen Flow Rate 10/15/24 22:00 10/15/24 22:00 10/16/24 00:00 Temperature 97.8 F 97.3 F L Pulse Rate 65 63 Respiratory Rate 22 H Blood Pressure 132/87 124/77 Pulse Oximetry 91 91 91 Oxygen Delivery Nasal Cannula Nasal Cannula Oxygen Flow Rate 2 2 10/16/24 00:10 10/16/24 00:40 10/16/24 05:31 Temperature Pulse Rate 62 69 59 L Respiratory Rate 22 H 20 20 Blood Pressure Pulse Oximetry 91 97 91 Oxygen Delivery Oxygen Flow Rate 2 2 2 10/16/24 05:42 10/16/24 07:50 10/16/24 08:30 Temperature 97.3 F L Pulse Rate 64 61 61 Respiratory Rate 20 18 18 Blood Pressure 128/78 Pulse Oximetry 97 92 92 Oxygen Delivery Nasal Cannula Nasal Cannula Oxygen Flow Rate 2 2 2 Exam Narrative: * GENERAL: Alert and oriented x 3. No acute distress. * EYES: EOMI. No scleral icterus. PERRLA. * HEENT: Moist mucous membranes. * LUNGS: Wheezing to auscultation bilaterally. No accessory muscle use. On 2L NC supplemental oxygen * CARDIOVASCULAR: Regular rate and rhythm. No murmur. No JVD. S1-S2 * ABDOMEN: Soft, non tenderness and non-distended. No palpable masses. * EXTREMITIES: No edema. Non-tender * SKIN: No rashes or lesions. Skin warm, dry. * NEUROLOGIC: No focal neurological deficits. CN II-XII grossly intact * PSYCHIATRIC: Appropriate mood and affect. Good judgement and insight. H&P: Results Labs Labs: Short CBC 10/15/24 10/16/24 Range/Units 19:47 05:47 WBC 11.0 H 11.3 H (4.8-10.8) K/mm3 Hgb 13.4 L 12.9 L (14.0-18.0) g/dL Hct 39.5 L 38.6 L (40.0-54.0) % Plt Count 226 209 (150-420) K/mm3 [facility] 10/15/24 10/16/24 19:47 05:47 Sodium 134 L 131 L Potassium 3.8 4.4 Chloride 95 L 96 L Carbon Dioxide 31 26 BUN 15 12 Creatinine 0.79 0.64 L Glucose 116 H 143 H Calcium 8.4 L 8.2 L Liver Function 10/15/24 10/16/24 Range/Units 19:47 05:47 Total Bilirubin 0.4 0.4 (0.00-1.00) mg/dL AST 46 H 40 H (15-37) U/L ALT 56 56 (16-63) U/L Alkaline Phosphatase 118 H 111 (46-116) U/L Albumin 3.1 L 2.9 L (3.4-5.0) g/dL Imaging Chest x-ray: Radiologist's impression: EXAMINATION: XR chest 1V portable DATE: 10/15/2024 19:10 INDICATION: Cough and shortness of breath TECHNIQUE: frontal view of the chest was obtained. COMPARISON: Chest radiograph dated 10/14/2024 FINDINGS: Increased indistinct interstitial pattern with bronchial wall thickening throughout both lungs. Patchy airspace opacities in the right mid and upper and left lower lung zones. No pleural effusion or pneumothorax. The cardiomediastinal silhouette is normal. IMPRESSION: 1. Diffuse bilateral lung disease and favor pneumonia over pulmonary edema. Assessment and Plan Assessment and plan (1) Acute hypoxemic respiratory failure: Code(s): J96.01 - Acute respiratory failure with hypoxia Status: Acute Assessment and Plan: patient presented to the emergency department with hypoxia oxygen saturation 89% on room air is placed on 2 L supplemental oxygen likely secondary to influenza possible underlying pneumonia * wean supplemental oxygen as tolerated * patient had received a dose of methylprednisone in the emergency department discontinued upon arrival * bronchodilators * mucolytics * incentive spirometer * did placed on oral Augmentin for any bacterial pneumonia coverage has been receiving azithromycin p.o. (2) Pneumonia: Code(s): J18.9 - Pneumonia, unspecified organism Status: Acute Assessment and Plan: SEE Above #1 (3) Influenza A: Code(s): J10.1 - Influenza due to other identified influenza virus with other respiratory manifestations Status: Acute Assessment and Plan: * supportive care * started on Tamiflu * incentive spirometer * bronchodilators * antipyretics * antiemetics * wean oxygen as tolerated to maintain 92% (4) COPD exacerbation: Code(s): J44.1 - Chronic obstructive pulmonary disease with (acute) exacerbation Status: Acute Assessment and Plan: * patient states he has never been diagnosed over long history smoking * recommend PFT testing outpatient * encouraged immediate smoking cessation Plan Code status: Full code per patient DVT prophylaxis: SCD, Ambulates Stress ulcer prophylaxis: NA PT/OT notes: Ambulatory Disposition: patient continues admission to the medical unit for acute respiratory failure with hypoxia secondary to influenza possible pneumonia and COPD exacerbation we will continue to wean oxygen as tolerated continue with current treatment plan patient is ambulatory and plan will be to return home at discharge no further discharge needs. Quality VTE Prophylaxis VTE prophylaxis: mechanical ordered -Patient's previous records reviewed on admission -ER notes reviewed in detail on admission -discussed all findings and current treatment plan with patient/Family/POA -Consultations reviewed for recommendations -Patient's disposition for safe discharge discussed with case assistant Dictation performed by [email or web address] direct speech recognition software, therefore product development assistant variants and typographical errors may occur. Hospitalist MIPS Advance Care Plan I have confirmed that the patient's Advanced Care Plan is present, code status is documented, or surrogate decision maker is listed in patient medical record.: Yes Medication Reconciliation I have utilized all available resources to obtain, update and review the patients current medications (includes all prescriptions, OTC, herbals, cannabis, and nutritional supplements).: Yes The patient is not eligible for med reconciliation; the patient is in a emergent medical situation where delaying treatment would jeopardize the patients health.: No
[2024-10-16] MEDS: OSELTAMIVIR PHOSPHATE 75 MG CAPSULE PO ×2 (11:47→20:27)
[2024-10-17] VITALS (8 sets, daily range): BP systolic 133–135; BP diastolic 79–86; PULSE 60–68; RESP 14–20; TEMP 36.3–36.4; O2SAT 90–98
[2024-10-17] MEDS: IPRATROPIUM 0.5 MG/ALBUTEROL SULFATE 2.5 MG AMPUL.NEB 3 ML INHALATION ×3 (00:26→11:51)
[2024-10-17] MEDS: CELECOXIB 100 MG CAPSULE 200 MG PO (09:04)
[2024-10-17] MEDS: AMOXICILLIN/CLAVULANATE K 875-125 MG TAB 1 TABLET PO (09:05)
[2024-10-17] MEDS: guaiFENesin 12 HR 600 MG TABCR 1200 MG PO (09:05)
[2024-10-17] MEDS: AZITHROMYCIN 250 MG TABLET PO (09:05)
[2024-10-17] MEDS: OSELTAMIVIR PHOSPHATE 75 MG CAPSULE PO (09:05)
--- NOTE | 2024-10-17 11:39 | P.DS_ITS ---
DS: Admitting Diagnosis Discharge Date 10/17/2024 Admitting Diagnosis Acute respiratory failure with hypoxia secondary to influenza and Pneumonia DS: Discharge Diagnosis Discharge Diagnosis (1) Acute hypoxemic respiratory failure: Code(s): J96.01 - Acute respiratory failure with hypoxia Status: Acute Assessment and Plan: patient presented to the emergency department with hypoxia oxygen saturation 89% on room air is placed on 2 L supplemental oxygen likely secondary to influenza possible underlying pneumonia Discharged on * mucolytics * incentive spirometer * oral Augmentin for any bacterial pneumonia coverage has been receiving azithromycin p.o. (2) Pneumonia: Code(s): J18.9 - Pneumonia, unspecified organism Status: Acute Assessment and Plan: SEE Above #1 (3) Influenza A: Code(s): J10.1 - Influenza due to other identified influenza virus with other respiratory manifestations Status: Acute Assessment and Plan: Discharged on * supportive care * started on Tamiflu * incentive spirometer * bronchodilators * antipyretics * antiemetics (4) COPD exacerbation: Code(s): J44.1 - Chronic obstructive pulmonary disease with (acute) exacerbation Status: Acute Assessment and Plan: * patient states he has never been diagnosed over long history smoking * recommend PFT testing outpatient * encouraged immediate smoking cessation Plan Disposition: Discharged to home DS: Summary Hospital Course Reason for hospitalization: Acute respiratory failure with hypoxia secondary to influenza and Pneumonia Hospital Course: patient was a 54-year-old male who presented to the emergency department with complaints of shortness breaths. Patient reports he was diagnosed with influenza 2 days prior and his primary care physician had initially started him on azithromycin and oral prednisone. Patient had presented to the emergency department the previous day and was found to be hypoxic around 89% however patient left against medical advice ER physician attempting to admit patient for at least observation overnight and oxygen supplement. patient returned due to worsening shortness a breath and once again was found to be in acute respiratory failure with hypoxia oxygen saturations around 80-89%. patient denied any past medical history however he has been a 40+ year smoker states he has been told he has COPD but not officially diagnosed. patient was admitted to the medical unit for further evaluation and treatment of acute respiratory failure with hypoxia secondary to influenza will continue with bronchodilators, supplemental oxygen, supportive care and initiate oral antibiotics for any underlying bacterial pneumonia CXR showing diffuse bilateral lung disease and favor pneumonia over pulmonary edema. Patient continued admission overnight receiving Duonebs, supplemental oxygen, tamiflu, incentive spirometer and Mucinex and was able to weaned off oxygen. Patient with overall improvement to respiratory status. Patient denied SOB but did have productive cough. Patient was discharged to home with tamilfu, Augmentin, Mucinex and instructed to continue to use his incenitive spirometer. I also instructed the use of antipyretics for fever. Patient was encouraged to seek medical evaluation of SOB worsened after discharge and he was having any difficulty breathing. Patient acknowledge and agreed with discharge plan. Status at Discharge Functional status at discharge: independent ambulation Overall status at discharge: patient is back to baseline Time Spent with Patient Time attestation: Total time spent providing and/or coordinating discharge services: Time spent: Greater than 30 minutes Exam Narrative: * GENERAL: Alert and oriented x 3. No acute distress. * EYES: EOMI. No scleral icterus. PERRLA. * HEENT: Moist mucous membranes. * LUNGS: clear to auscultation bilaterally. No accessory muscle use. On RA * CARDIOVASCULAR: Regular rate and rhythm. No murmur. No JVD. S1-S2 * ABDOMEN: Soft, non tenderness and non-distended. No palpable masses. * EXTREMITIES: No edema. Non-tender * SKIN: No rashes or lesions. Skin warm, dry. * NEUROLOGIC: No focal neurological deficits. CN II-XII grossly intact * PSYCHIATRIC: Appropriate mood and affect. Good judgement and insight. Discharge Plan Discharge Attending physician on discharge: George Lopez Discharging Clinician: Adwoa Noguera Anticipated Discharge Date/Time: 10/17/24 09:36 Patient Disposition: Home, Self-Care Activity: may shower and as tolerated Diet: as tolerated Discharge Instructions: Influenza * Supportive care at home * May continue incentive spirometer * Acetaminophen for pain aches and fevers * Encourage hydration * May use Mucinex OTC * Encouraged smoking cessation * Complete Tamiflu as indicated even if feeling better How can you care for yourself at home? ? Keep track of any new symptoms or changes in your symptoms. ? Rest until you feel better. ? Be safe with medicines. Take your medicines exactly as prescribed. Call your doctor if you think you are having a problem with your medicine. ? Do not drive after taking a prescription pain medicine. ? Ensure to follow-up with primary care physician as indicated and provide updated medication list provided to you at discharge. When should you call for help? Call 911 anytime you think you may need emergency care. For example, call if: ? You passed out (lost consciousness). Call your doctor now or seek immediate medical care if: ? You have new symptoms like fever, difficulty breathing, Chest pain, vomiting, or rash. ? You have new or different pain. ? You are confused and are having trouble thinking clearly. ? Your symptoms are getting worse. Watch closely for changes in your health, and be sure to contact your doctor if: ? You do not get better as expected. Patient Instructions: Antibiotic Form, Oseltamivir (By mouth), How to Stop Smoking (DC), Fall Prevention for Older Adults (DC) Patient Language: Gabonese Stand Alone Forms: General Discharge Information Follow-up/Referrals: Payton,Deny Reyes MD [Primary Care Provider] - 2 weeks Discharge Medications: New guaifenesin [Mucus Relief ER] 600 mg Tablet Extended Release 12hr 1,200 mg PO Q12HR Qty: 10 0RF oseltamivir [Tamiflu] 75 mg Capsule 75 mg PO Q12HR Qty: 7 0RF amoxicillin-pot clavulanate 875-125 mg tablet 1 tablet PO Q12H Qty: 7 0RF Continued celecoxib 200 mg capsule 200 mg PO DAILY azithromycin 250 mg tablet 250 mg PO DAILY buprenorphine-naloxone 2-0.5 mg film 2 film sublingual DAILY Patient Comments: CONFIRMED WITH [facility] THAT PT TAKES TWO OF TH 2MG/0.5MG FILMS DAILY FOR TOTAL DAILY DOSE OF 4MG/1MG. sildenafil 100 mg tablet 100 mg PO DAILY PRN (Reason: Erectile Dysfunction) zafirlukast 20 mg tablet 20 mg PO BID Atrovent HFA 17 mcg/actuation HFA aerosol inhaler 1 puff INHALATION DAILY Discontinued prednisone 10 mg tablet 10 mg PO DAILY Date of admission: 10/15/24 20:09 Primary Care Provider: Payton,Deny Reyes Admitting Provider: George Lopez Attending physician on admission: Adwoa Noguera Condition: Stable Quality VTE Prophylaxis VTE prophylaxis: mechanical ordered -Patient's previous records reviewed on admission -ER notes reviewed in detail on admission -discussed all findings and current treatment plan with patient/Family/POA -Consultations reviewed for recommendations -Patient's disposition for safe discharge discussed with child support case officer Dictation performed by nooked direct speech recognition software, therefore rn gastroenterology variants and typographical errors may occur. Hospitalist MIPS Heart Failure (Exclusion) Patient has history of Heart Transplant or Left Ventricular Assistive Device?: No IF YES, STOP HERE Heart Failure (Qualifier) Patient has current or prior documentation of LVEF less than or equal to 40%, or mod/servere depressed LVSF?: No IF NO, STOP HERE
--- NOTE | 2024-10-17 13:59 | PC.NURSE ---
Pt discharged to home and family care. Respiratory system is improved. Discharge instructions regarding medications : side effects, dosages, reason,and time . Pt reminded to call PCP and make a follow up appointment for post hospital visit. Pt instructed to return to the hospital if he runs a fever, has difficulty breathing or has chest pain. Pt and spouse verbalize understanding of instructions.
== END 2024-10-17 13:30 | disposition home or self-care (01) | DRG 193 ==
LOC: CHSED 19:32 → CHS2ND 21:06
PROVIDERS: Admitting Provider Internal Medicine; Emergency Provider Emergency Medicine; PCP Family Medicine; Visit Provider Nurse Practitioner Family
DX: J10.00 Influenza due to other identified influenza virus with unspecified type of pneumonia (principal); J96.01 Acute respiratory failure with hypoxia; J44.1 Chronic obstructive pulmonary disease with (acute) exacerbation; F17.290 Nicotine dependence, other tobacco product, uncomplicated; Z20.822 Contact with and (suspected) exposure to COVID-19
CPT/HCPCS: 36415; 36600; 71045; 80053; 82805; 83605; 85025; 85027; 86140; 87040; 87637; 94640; 96374; 99285; A9270; J1956; J2919; J7030

== ENCOUNTER 2024-11-24 12:57 | Outpatient (CLI) | payer OTHER, SELFPAY ==
--- NOTE | ~2024-11-24 | XR_ITS ---
CHEST RADIOGRAPH, PA AND LATERAL CLINICAL HISTORY: COPD-exacerbation f/u flu a continues congestion . COMPARISON: 10/15/2024 TECHNIQUE: PA and lateral views of the chest. FINDINGS The cardiomediastinal silhouette is unremarkable. Improved aeration of the right upper lobe when compared with previous examination. The remainder of the lungs are clear. IMPRESSION: No focal infiltrate or effusion. Reviewed, dictated and finalized at location A.
--- OUTSIDE RECORDS SUMMARY | 2024-11-24 13:08 | XMS_ITS | Clinical Summary ---
Author Organization [facility] Address [address] [place] [address] Care Team Providers Care County Attorney Name Role Phone Deny Cain MD Primary Care Provider [phone] Allergies No known active allergies Medications VENTOLIN [...] patient's age to complete this topic Insurance [facility] Care Teams County Attorney Relationship Specialty Start Date End Date Deny Cain MD PCP - General FAMILY PRACTICE 01/16/20
== END 2024-11-24 12:58 | disposition home or self-care (01) ==
PROVIDERS: PCP Family Medicine; Visit Provider Family Medicine
DX: J44.1 Chronic obstructive pulmonary disease with (acute) exacerbation (principal)
CPT/HCPCS: 71046